=== PATIENT | female | born 1935 | race Caucasian/White ===

== ENCOUNTER 2018-01-08 06:45 | Emergency (ER) | payer OTHER, BC ==
[~2018-01-08] VITALS: Ht 157.5 cm; Wt 52.6 kg
[~2018-01-08 06:45] MED LIST: ASPIRIN325 MG PO; BENTYL20 MG PO; CALCIUM CARBO1000 MG PO; CLONAZEPAM0.5 MG PO; DAILY VALUE1 EACH PO; NORVASC2.5 MG PO; PROAIR RESPICL90 MCG IH; TOPROL XL100 MG PO; VITAMIN E400 UNIT PO
[2018-01-08 07:42] LABS: HEMATOCRIT 37.1 % (36.0-46.0); HEMOGLOBIN 13.2 G/DL (11.9-15.5); MCH 33.2 PG (29.0-34.0); MCHC 35.6 G/DL (30.0-36.0); MCV 93.5 FL (83-99); PLATELET COUNT 190 K/uL (156-360); RBC DIS.WIDTH-CV 12.2 % (11.8-14.6); RBC DIS.WIDTH-SD 41.9 % (39-53); RED BLOOD COUNT 3.97 M/uL (3.80-5.20); WHITE BLOOD COUNT 10.3 K/uL (4.1-10.2)
[2018-01-08 08:16] LABS: CHLORIDE 88 MEQ/L (99-109); CREATININE 0.6 MG/DL (0.6-1.3); GFR ESTIMATE (CALCULATED) > 59 mL/min/; GLUCOSE 105 mg/dL (70-99); POTASSIUM 4.4 MEQ/L (3.7-5.4); SODIUM 128 MEQ/L (136-147); UREA NITROGEN (BUN) 14 mg/dL (9-23)
[2018-01-08 08:23] LABS: APPEARANCE CLEAR ((CLEAR)); BILIRUBIN NEGATIVE; BLOOD NEGATIVE; COLOR STRAW ((YELLOW)); GLUCOSE (STRIP) NEGATIVE; KETONES NEGATIVE; LEUKOCYTES NEGATIVE; NITRITE NEGATIVE; PROTEIN (STRIP) NEGATIVE; SPECIFIC GRAVITY 1.005 (1.000-1.030); UCUL ADDED? NO; UROBILINOGEN 0.2 MG/DL (0.2-1.0)
[2018-01-08] MEDS ORDERED: MIRALAX17 GM PO (10:47)
[2018-01-08] MEDS ORDERED: ULTRAM50 MG PO (10:47)
[2018-01-08 11:10] VITALS: BP 126/72
== END 2018-01-08 11:11 | disposition home or self-care (01) ==
LOC: EME → EDBD 06:45 → EME 06:45
PROVIDERS: Emergency Medicine
DX: M48.56XA Collapsed vertebra, not elsewhere classified, lumbar region, initial encounter for fracture (principal); K59.00 Constipation, unspecified; E87.1 Hypo-osmolality and hyponatremia; I25.2 Old myocardial infarction; J44.9 Chronic obstructive pulmonary disease, unspecified; Z99.81 Dependence on supplemental oxygen; K90.0 Celiac disease; Z95.1 Presence of aortocoronary bypass graft; Z79.82 Long term (current) use of aspirin; Z87.891 Personal history of nicotine dependence
CPT/HCPCS: 72131; 74176; 80048; 81003; 85027; 99281; 99285

== ENCOUNTER 2018-02-04 16:57 | Emergency (ER) | payer OTHER, BC ==
[~2018-02-04] VITALS: Ht 157.5 cm; Wt 45.6 kg
[~2018-02-04 16:57] MED LIST changes: +MIRALAX17 GM PO; +ULTRAM50 MG PO
[2018-02-04 18:57] LABS: HEMATOCRIT 39.7 % (36.0-46.0); HEMOGLOBIN 13.5 G/DL (11.9-15.5); MCH 33.4 PG (29.0-34.0); PLATELET COUNT 166 K/uL (156-360); RBC DIS.WIDTH-CV 12.7 % (11.8-14.6); RBC DIS.WIDTH-SD 45.9 % (39-53); RED BLOOD COUNT 4.04 M/uL (3.80-5.20)
[2018-02-04 18:58] LABS: MCV 98.3 FL (83-99)
[2018-02-04 19:06] LABS: CHLORIDE 94 mEq/L (99-109); POTASSIUM 4.9 mEq/L (3.7-5.4); SODIUM 138 mEq/L (136-147)
[2018-02-04 19:08] LABS: GLUCOSE 93 mg/dL (70-99)
[2018-02-04 19:12] LABS: CREATININE 0.7 mg/dL (0.6-1.3); GFR ESTIMATE (CALCULATED) > 59 mL/min/
[2018-02-04 19:13] LABS: UREA NITROGEN (BUN) 11 mg/dL (9-23)
[2018-02-04] MEDS ORDERED: NAPROSYN500 MG PO (20:10)
[2018-02-04 20:27] VITALS: BP 150/89
== END 2018-02-04 20:28 | disposition home or self-care (01) ==
LOC: EME 16:57
PROVIDERS: Emergency Medicine
DX: M54.5 Low back pain (principal); J44.9 Chronic obstructive pulmonary disease, unspecified; I25.2 Old myocardial infarction; F17.200 Nicotine dependence, unspecified, uncomplicated; F41.0 Panic disorder [episodic paroxysmal anxiety]; Z79.82 Long term (current) use of aspirin; Z95.1 Presence of aortocoronary bypass graft
CPT/HCPCS: 80048; 85027; 99281; 99284

== ENCOUNTER 2018-02-07 10:53 | Observation (INO) | payer OTHER, BC ==
[~2018-02-07] VITALS: Ht 157.5 cm; Wt 48.4 kg
[~2018-02-07 10:53] MED LIST changes: +NAPROSYN500 MG PO
[2018-02-07 11:36] LABS: BASOPHIL (%) 0.2 % (0-1); EOSINOPHIL (%) 0.3 % (0-5); HEMATOCRIT 36.2 % (36.0-46.0); HEMOGLOBIN 12.5 G/DL (11.9-15.5); IMMATURE GRANULOCYTE (%) 0.3 % (0.0-0.7); LYMPHOCYTE (%) 8.9 % (15-42); LYMPHOCYTE COUNT 0.8 K/uL (1.0-2.8); MCH 33.8 PG (29.0-34.0); MCHC 34.5 G/DL (30.0-36.0); MCV 97.8 FL (83-99); MONOCYTE (%) 10.5 % (3-12); MONOCYTE COUNT 0.9 K/uL (0-0.8); NEUTROPHIL (%) 79.8 % (45-76); NEUTROPHIL COUNT 7.1 K/uL (1.8-6.4); PLATELET COUNT 138 K/uL (156-360); RBC DIS.WIDTH-CV 13.2 % (11.8-14.6); RBC DIS.WIDTH-SD 47.2 % (39-53); WHITE BLOOD COUNT 8.9 K/uL (4.1-10.2)
[2018-02-07 11:44] LABS: CHLORIDE 95 mEq/L (99-109); POTASSIUM 4.3 mEq/L (3.7-5.4); SODIUM 135 mEq/L (136-147)
[2018-02-07 11:46] LABS: GLUCOSE 124 mg/dL (70-99)
[2018-02-07 11:50] LABS: CREATININE 0.7 mg/dL (0.6-1.3); GFR ESTIMATE (CALCULATED) > 59 mL/min/
[2018-02-07 11:51] LABS: UREA NITROGEN (BUN) 12 mg/dL (9-23)
[2018-02-07 11:56] LABS: TROP-I INTERPRETATION NEGATIVE; TROPONIN-I < 0.01 ng/mL (0.0-0.30)
[2018-02-07] MEDS ORDERED: ASPIRIN81 M2 PO (12:58)
[2018-02-07] MEDS ORDERED: CALCIUM 600 MG1 EACH PO (12:59)
[2018-02-07] MEDS ORDERED: TYLENOL EXTRA500 MG PO (13:01)
[2018-02-07] MEDS ORDERED: ENDOCET 5-3251 EACH PO (13:02)
[2018-02-07 15:58] VITALS: BP 149/72
[2018-02-07 20:09] VITALS: BP 130/71
[2018-02-07 20:53] LABS: TROP-I INTERPRETATION NEGATIVE; TROPONIN-I < 0.01 ng/mL (0.0-0.30)
[2018-02-08 00:02] VITALS: BP 161/72
[2018-02-08 01:20] LABS: TROP-I INTERPRETATION NEGATIVE; TROPONIN-I < 0.01 ng/mL (0.0-0.30)
[2018-02-08 03:46] VITALS: BP 148/70
[2018-02-08 07:23] VITALS: BP 175/91
[2018-02-08 11:28] VITALS: BP 180/90
[2018-02-08 16:27] VITALS: BP 127/74
[2018-02-08 20:00] VITALS: BP 144/77
[2018-02-09 00:11] VITALS: BP 124/64
[2018-02-09 04:44] VITALS: BP 159/84
[2018-02-09 06:13] LABS: BASOPHIL (%) 0.4 % (0-1); EOSINOPHIL (%) 1.3 % (0-5); EOSINOPHIL COUNT 0.1 K/uL (0-0.3); HEMATOCRIT 35.1 % (36.0-46.0); HEMOGLOBIN 11.8 G/DL (11.9-15.5); IMMATURE GRANULOCYTE (%) 0.3 % (0.0-0.7); LYMPHOCYTE (%) 14.5 % (15-42); LYMPHOCYTE COUNT 1.1 K/uL (1.0-2.8); MCH 33.1 PG (29.0-34.0); MCHC 33.6 G/DL (30.0-36.0); MCV 98.6 FL (83-99); MONOCYTE (%) 11.3 % (3-12); MONOCYTE COUNT 0.8 K/uL (0-0.8); NEUTROPHIL (%) 72.2 % (45-76); NEUTROPHIL COUNT 5.4 K/uL (1.8-6.4); PLATELET COUNT 151 K/uL (156-360); RBC DIS.WIDTH-CV 13.2 % (11.8-14.6); RBC DIS.WIDTH-SD 48.5 % (39-53); RED BLOOD COUNT 3.56 M/uL (3.80-5.20); WHITE BLOOD COUNT 7.4 K/uL (4.1-10.2)
[2018-02-09 06:40] LABS: CHLORIDE 93 MEQ/L (99-109); CREATININE 0.5 MG/DL (0.6-1.3); GFR ESTIMATE (CALCULATED) > 59 mL/min/; GLUCOSE 115 mg/dL (70-99); SODIUM 134 MEQ/L (136-147); UREA NITROGEN (BUN) 14 mg/dL (9-23)
[2018-02-09 07:39] VITALS: BP 134/72
[2018-02-09 10:46] VITALS: BP 138/72
[2018-02-09 16:35] VITALS: BP 147/77
[2018-02-09 20:00] VITALS: BP 157/83
[2018-02-10 00:22] VITALS: BP 125/66
[2018-02-10 04:23] VITALS: BP 117/63
[2018-02-10 05:40] LABS: BASOPHIL (%) 0.6 % (0-1); EOSINOPHIL (%) 2.9 % (0-5); EOSINOPHIL COUNT 0.2 K/uL (0-0.3); HEMATOCRIT 34.9 % (36.0-46.0); HEMOGLOBIN 11.6 G/DL (11.9-15.5); IMMATURE GRANULOCYTE (%) 0.3 % (0.0-0.7); LYMPHOCYTE (%) 16.8 % (15-42); MCH 32.8 PG (29.0-34.0); MCHC 33.2 G/DL (30.0-36.0); MCV 98.6 FL (83-99); MONOCYTE (%) 12.6 % (3-12); MONOCYTE COUNT 0.8 K/uL (0-0.8); NEUTROPHIL (%) 66.8 % (45-76); NEUTROPHIL COUNT 4.1 K/uL (1.8-6.4); PLATELET COUNT 151 K/uL (156-360); RBC DIS.WIDTH-SD 46.9 % (39-53); RED BLOOD COUNT 3.54 M/uL (3.80-5.20); WHITE BLOOD COUNT 6.2 K/uL (4.1-10.2)
[2018-02-10 06:00] LABS: CHLORIDE 94 MEQ/L (99-109); CREATININE 0.6 MG/DL (0.6-1.3); GFR ESTIMATE (CALCULATED) > 59 mL/min/; GLUCOSE 102 mg/dL (70-99); POTASSIUM 4.2 MEQ/L (3.7-5.4); SODIUM 132 MEQ/L (136-147); UREA NITROGEN (BUN) 15 mg/dL (9-23)
[2018-02-10 07:53] VITALS: BP 173/88
[2018-02-10 11:29] VITALS: BP 137/80
[2018-02-10] MEDS ORDERED: TORADOL10 MG PO (14:39)
[2018-02-10] MEDS ORDERED: CYCLOBENZAPRINE5 MG PO (14:39)
[2018-02-10] MEDS ORDERED: POLYETHYLENE GL17 GM PO (14:41)
[2018-02-10] MEDS ORDERED: SENNA PLUS TAB1 EACH PO (14:41)
[2018-02-10] MEDS ORDERED: COLACE CLEAR50 MG PO (14:41)
[2018-02-10] MEDS ORDERED: ENDOCET 5-3251 EACH PO (14:44)
== END 2018-02-10 16:44 | disposition home or self-care (01) ==
LOC: EME 10:53 → EDOF 12:20 → 5WEST 12:20 → EDOF 12:20 → ENRESERV 12:21 → 5WEST 15:53
PROVIDERS: Emergency Medicine; Internal Medicine
DX: R07.9 Chest pain, unspecified (principal); M54.5 Low back pain; M48.56XA Collapsed vertebra, not elsewhere classified, lumbar region, initial encounter for fracture; E87.1 Hypo-osmolality and hyponatremia; K90.0 Celiac disease; R53.1 Weakness; R09.1 Pleurisy; J44.9 Chronic obstructive pulmonary disease, unspecified; J96.10 Chronic respiratory failure, unspecified whether with hypoxia or hypercapnia; I25.10 Atherosclerotic heart disease of native coronary artery without angina pectoris; Z99.81 Dependence on supplemental oxygen; Z95.1 Presence of aortocoronary bypass graft; F17.200 Nicotine dependence, unspecified, uncomplicated; I12.9 Hypertensive chronic kidney disease with stage 1 through stage 4 chronic kidney disease, or unspecified chronic kidney disease; N18.9 Chronic kidney disease, unspecified; I71.4 Abdominal aortic aneurysm, without rupture
CPT/HCPCS: 71045; 71275; 72148; 80048; 84484; 85025; 93005; 94799; 99202; 99281; 99285; G0378; G8978 GP CJ; G8979 GP CI; G8987 GO CI; G8988 GO CH; J0360; J1650; J7030